=== PATIENT | male | born 2000 | race Caucasian/White ===

== ENCOUNTER 2021-08-18 11:14 | Emergency (ER) | payer OTHER ==
[~2021-08-18 11:14] MED LIST: VIBRAMYCIN 100100 MG PO
[2021-08-18 11:44] LABS: HEMOGLOBIN 16.3 gm/dl (14.0-17.5); RED BLOOD COUNT 5.29 M/UL (4.20-5.50); WHITE BLOOD COUNT 6.5 K/UL (4.5-11.0)
[2021-08-18 12:04] LABS: BUN/CREATININE RATIO 18 (0-10)
== END 2021-08-18 13:58 | disposition home or self-care (01) ==
LOC: ER1 11:14
PROVIDERS: Emergency Medicine
DX: N50.811 Right testicular pain (principal); F17.210 Nicotine dependence, cigarettes, uncomplicated
CPT/HCPCS: 76870; 80053; 81001; 83690; 85025; 96374; 99284; J1885